=== PATIENT | male | born 1995 | race Caucasian/White ===

== ENCOUNTER 2020-08-10 11:16 | Emergency (ER) | payer OTHER ==
--- NOTE | 2020-08-10 11:53 | ER Document Report ---
ED Medical Screen (RME) - General Chief Complaint: Blood Pressure Problem Stated Complaint: BLOOD PRESSURE ISSUE Time Seen by Provider: 08/10/20 11:46 Mode of Arrival: Ambulatory Information source: Patient Notes: 24-year-old male presented to ED for complaint of elevated blood pressure at the urgent care yesterday then he called to try to get a primary care today and he had headache vision that was coming and going chests letter lightness in his chest. He states he is always had high blood pressure he does drink socially does not use drugs or smoke. Is alert oriented respirations regular nonlabored speaking in full sentences. We will get chest x-ray EKG and blood work to find out why he has a flutter in his chest and vision coming and going. Pain to the back of his head. I have greeted and performed a rapid initial assessment of this patient. A comprehensive ED assessment and evaluation of the patient, analysis of test results and completion of medical decision making process will be conducted by an additional ED providers. - Related Data Allergies/Adverse Reactions: No Known Allergies Allergy (Unverified 08/10/20 11:46) Physical Exam - Vital signs Vitals: Temp Pulse Resp BP Pulse Ox 98.9 F 76 22 H 162/86 H 98 08/10/20 11:41 08/10/20 11:41 08/10/20 11:41 08/10/20 11:41 08/10/20 11:41 Course - Vital Signs Vital signs: Temp Pulse Resp BP Pulse Ox 98.9 F 76 22 H 162/86 H 98 08/10/20 11:41 08/10/20 11:41 08/10/20 11:41 08/10/20 11:41 08/10/20 11:41
--- NOTE | 2020-08-10 12:49 | RADIOLOGY REPORT (SQ) ---
EXAM DESCRIPTION: CHEST 2 VIEWS IMAGES COMPLETED DATE/TIME: 08/10/2020 12:39 pm REASON FOR STUDY: Vision changes headache COMPARISON: None. EXAM PARAMETERS: NUMBER OF VIEWS: two views TECHNIQUE: Digital Frontal and Lateral radiographic views of the chest acquired. RADIATION DOSE: NA LIMITATIONS: none FINDINGS: LUNGS AND PLEURA: No opacities, masses or pneumothorax. No pleural effusion. MEDIASTINUM AND HILAR STRUCTURES: No masses or contour abnormalities. HEART AND VASCULAR STRUCTURES: Heart normal size. No evidence for failure. BONES: No acute findings. HARDWARE: None in the chest. OTHER: No other significant finding. IMPRESSION: NO ACUTE RADIOGRAPHIC FINDING IN THE CHEST. TECHNICAL DOCUMENTATION: JOB ID: [id number] 2010 [employer]- All Rights Reserved Reading location - IP/workstation name: [email or web address]
--- NOTE | 2020-08-10 12:57 | RADIOLOGY REPORT (SQ) ---
EXAM DESCRIPTION: CT HEAD WITHOUT IMAGES COMPLETED DATE/TIME: 08/10/2020 12:39 pm REASON FOR STUDY: Vision changes headache COMPARISON: None. TECHNIQUE: Axial images acquired through the brain without intravenous contrast. Images reviewed wi th bone, brain and subdural windows. Additional sagittal and coronal reconstructions were generated. Images stored on PACS. All CT scanners at this facility use dose modulation, iterative reconstruction, and/or weight based d osing when appropriate to reduce radiation dose to as low as reasonably achievable (ALARA). [facility]: Dose Right [facility]: CareDose [facility]: Dose Right [facility]: Teradose 4D [facility]: Smart FoodShootr RADIATION DOSE: CT Rad equipment meets quality standard of care and radiation dose reduction techniq ues were employed. CTDIvol: 53.2 mGy. DLP: 1070 mGy-cm. mGy. LIMITATIONS: None. FINDINGS: VENTRICLES: Normal size and contour. CEREBRUM: No masses. No hemorrhage. No midline shift. No evidence for acute infarction. Normal gra y/white matter differentiation. No areas of low density in the white matter. CEREBELLUM: No masses. No hemorrhage. No alteration of density. No evidence for acute infarction. EXTRAAXIAL SPACES: No fluid collections. No masses. ORBITS AND GLOBE: No intra- or extraconal masses. Normal contour of globe without masses. CALVARIUM: No fracture. PARANASAL SINUSES: No fluid or mucosal thickening. SOFT TISSUES: No mass or hematoma. OTHER: No other significant finding. IMPRESSION: NORMAL BRAIN CT WITHOUT CONTRAST. EVIDENCE OF ACUTE STROKE: NO. COMMENT: Quality ID # [id number]: Final reports with documentation of one or more dose reduction techniques (e.g., Automated exposure control, adjustment of the mA and/or kV according to patient size, use of iterative reconstruction technique) TECHNICAL DOCUMENTATION: JOB ID: [id number] 2010 [employer]- All Rights Reserved Reading location - IP/workstation name: [email or web address]
[2020-08-10 13:16] LABS: HEMATOCRIT 42.1 % (37.9-51.0); HEMOGLOBIN 14.6 g/dL (13.5-17.0); MEAN CORPUSCULAR HEMOGLOBIN 26.8 pg (27.0-33.4); MEAN CORPUSCULAR HGB CONC 34.8 g/dL (32.0-36.0); MEAN CORPUSCULAR VOLUME 77 fl (80-97); PLATELET COUNT 174 10^3/uL (150-450); RED BLOOD COUNT 5.47 10^6/uL (4.35-5.55); RED CELL DISTRIBUTION WIDTH 14.6 % (11.5-14.0); WHITE BLOOD COUNT 8.7 10^3/uL (4.0-10.5)
[2020-08-10 13:35] LABS: APPEARANCE,URINE CLEAR; BILIRUBIN,URINE NEGATIVE (NEGATIVE); COLOR,URINE YELLOW; GLUCOSE, URINE NEGATIVE (NEGATIVE); KETONES,URINE NEGATIVE (NEGATIVE); LEUKOCYTE ESTERASE,URINE NEGATIVE (NEGATIVE); NITRITE,URINE NEGATIVE (NEGATIVE); PROTEIN,URINE NEGATIVE (NEGATIVE); UROBILINOGEN,URINE NEGATIVE mg/dL (<2.0)
[2020-08-10 13:40] LABS: ABSOLUTE LYMPHOCYTES# (MANUAL) 2.5 10^3/uL (0.5-4.7); ABSOLUTE MONOCYTES # (MANUAL) 0.8 10^3/uL (0.1-1.4); BASOPHILS % (MANUAL) 0 % (0-2); EOSINOPHILS % (MANUAL) 2 % (0-6); LYMPHOCYTES % (MANUAL) 29 % (13-45); MONOCYTES % (MANUAL) 9 % (3-13); SEGMENTED NEUTROPHILS % (MAN) 60 % (42-78); TOTAL CELLS COUNTED 100
[2020-08-10 13:42] LABS: ALBUMIN 4.4 g/dL (3.5-5.0); ALKALINE PHOSPHATASE 89 U/L (38-126); ANION GAP 11 (5-19); ASPARTATE AMINO TRANSFERASE 22 U/L (17-59); BILIRUBIN,TOTAL 0.5 mg/dL (0.2-1.3); BLOOD UREA NITROGEN 18 mg/dL (7-20); CALCIUM 9.4 mg/dL (8.4-10.2); CARBON DIOXIDE 25 mmol/L (22-30); CHLORIDE 104 mmol/L (98-107); GLUCOSE 93 mg/dL (75-110); HYPOCHROMASIA SLIGHT; POLYCHROMASIA SLIGHT; POTASSIUM 4.1 mmol/L (3.6-5.0); TOTAL PROTEIN 7.4 g/dL (6.3-8.2)
[2020-08-10 13:46] LABS: PLATELET COMMENT ADEQUATE
[2020-08-10 13:57] LABS: URINE AMPHETAMINES SCREEN NEGATIVE; URINE BARBITURATES SCREEN NEGATIVE; URINE BENZODIAZEPINES SCREEN NEGATIVE; URINE COCAINE SCREEN NEGATIVE; URINE MARIJUANA (THC) SCREEN NEGATIVE; URINE METHADONE SCREEN NEGATIVE; URINE PHENCYCLIDINE SCREEN NEGATIVE
--- NOTE | 2020-08-10 16:16 | ER Document Report ---
ED Blood Pressure Problem - General Chief Complaint: High Blood Pressure Stated Complaint: BLOOD PRESSURE ISSUE Time Seen by Provider: 08/10/20 11:46 Primary Care Provider: JOSE VALERA MD [COMMUNITY BASED STAFF] - Follow up as needed Mode of Arrival: Ambulatory Information source: Patient Notes: Patient is a 24-year-old male comes emergency room complaining of having a headache and elevated blood pressure. Patient states that his story started years ago and has had a history of high blood pressure but is never done anything about it. 2 weeks ago patient hurt his hand and went to a walk-in clinic where they found that his blood pressure was high at about 180/90. They told him there could be because of pain and discomfort and to follow-up with his primary care provider. Patient states that the 2 weeks went by his hand and get a lot better and he went to another walk-in urgent care yesterday and again his blood pressure was now 190/90. They told him that he needed follow-up with his primary care provider for blood pressure control. Patient currently does not have a primary care provider. However he has set up an appointment with a new physician near his house for next week. The urgent care clinic told him that he needed to go to the emergency room because he got also had some mild chest discomfort with a headache. He also states that his eye was fasciculating. Denies any blurry vision. Denies any nausea vomiting or sweating. Patient crystal es any radiation of pain or discomfort states it only lasted for a fleeting second. Family history is pertinent for grandfather having a history of heart disease in his 70s and his dad have a history of hypertension. Patient does not smoke drink or do drugs. Patient is a [id number] dad who is retired from the . He states when he was in the [employer] his blood pressure was very low and since he has been out of the [employer] he has elevated blood pressures. He also states that in the [employer] he weighed 165 pounds and he currently weighs approximately 225 pounds. TRAVEL OUTSIDE OF THE [place] IN LAST 30 DAYS: No - HPI Patient complains to provider of: High blood pressure Onset: Other - Chronic Onset/Duration: Gradual Quality of pain: Achy, Throbbing Severity: Moderate Pain Level: 3 Problem is: Chronic problem Pt currently taking medication for problem: No Associated symptoms: Headache. denies: Nausea, Speech changes, Trouble breathing, Visual changes, Vomiting, Weakness Similar symptoms previously: Yes Recently seen / treated by doctor: Yes - Related Data Allergies/Adverse Reactions: No Known Allergies Allergy (Unverified 08/10/20 11:46) Past Medical History - Social History Smoking Status: Never Smoker Cigarette use (# per day): No Chew tobacco use (# tins/day): No Smoking Education Provided: No Frequency of alcohol use: None Drug Abuse: None Lives with: Family Family History: Reviewed & Not Pertinent, CAD Patient has suicidal ideation: No Patient has homicidal ideation: No Review of Systems - Review of Systems Constitutional: No symptoms reported EENT: No symptoms reported Cardiovascular: See HPI, Chest pain Respiratory: No symptoms reported Gastrointestinal: No symptoms reported Genitourinary: No symptoms reported Male Genitourinary: No symptoms reported Musculoskeletal: No symptoms reported Skin: No symptoms reported Hematologic/Lymphatic: No symptoms reported Neurological/Psychological: Headaches Physical Exam - Vital signs Vitals: Temp Pulse Resp BP Pulse Ox 98.9 F 76 22 H 162/86 H 98 08/10/20 11:41 08/10/20 11:41 08/10/20 11:41 08/10/20 11:41 08/10/20 11:41 Interpretation: Hypertensive - Notes Notes: PHYSICAL EXAMINATION: GENERAL: Well-appearing, well-nourished and in no acute distress. HEAD: Atraumatic, normocephalic. EYES: Pupils equal round and reactive to light, extraocular movements intact, sclera anicteric, conjunctiva are normal. ENT: Nares patent, oropharynx clear without exudates. Moist mucous membranes. NECK: Normal range of motion, supple without lymphadenopathy LUNGS: Breath sounds clear to auscultation bilaterally and equal. No wheezes rales or rhonchi. HEART: Regular rate and rhythm without murmurs ABDOMEN: Soft, nontender, nondistended abdomen. No guarding, no rebound. No masses appreciated. Musculoskeletal: Normal range of motion, no pitting or edema. No cyanosis. NEUROLOGICAL: Normal speech, normal gait. Normal sensory, motor exams PSYCH: Normal mood, normal affect. SKIN: Warm, Dry, normal turgor, no rashes or lesions noted. Course - Re-evaluation Re-evalutation: 08/10/20 16:15 Patient's work-up was negative for any acute findings. CT of the head was negative as well. Chest was negative, blood work was all good. Patient's blood pressure on arrival was 167/89 I believe and recheck is coming up now. Patient had not been ordered an EKG but EKG done on 08/10/2020 at 1548 shows to be a normal sinus rhythm no ectopy noted no ST segment changes. 08/10/20 16:17 Given patient has an appointment next week but still having a headache we will start him on some lisinopril 20 mg daily. He has been instructed return to ER should he have any increasing chest pain or shortness of breath or worsening headaches. - Vital Signs Vital signs: Temp Pulse Resp BP Pulse Ox 98.3 F 74 17 131/78 H 99 08/10/20 16:25 08/10/20 16:25 08/10/20 16:25 08/10/20 16:25 08/10/20 16:25 - Laboratory Result Diagrams: 08/10/20 12:47 08/10/20 12:47 Laboratory results interpreted by me: 08/10/20 12:47 MCV 77 L MCH 26.8 L RDW 14.6 H - EKG Interpretation by Me EKG shows normal: Sinus rhythm, Tarpley - Normal access, Intervals - Appear normal, QRS Complexes - Normal, ST-T Waves - Normal Rate: Normal - 61 bpm Rhythm: NSR Tarpley/QRS: No: RBBB, LBBB, IVCD, LAHB/LAFB, LPHB/LPFB Voltage: No: Increased voltage Additional EKG results interpreted by me: 08/10/20 16:17 Apparently patient has a textbook normal EKG. Discharge - Discharge Clinical Impression: Hypertensive headache Hypertension Qualifiers: Hypertension type: unspecified Qualified Code(s): I10 - Essential (primary) hypertension Condition: Stable Disposition: HOME, SELF-CARE Instructions: Angiotensin Converting Enzyme Inhibitor Medication ([facility]), High Blood Pressure, Requiring Treatment ([facility]) Additional Instructions: As we discussed I usually do not start patients on blood pressure medications out of ER but since you have close follow-up this coming week I am going put you on some lisinopril since her renal functions look good. And take it only once a day. Should you have increasing headaches worsening vision or chest pain/shortness of breath return to ER for reevaluation. Prescriptions: Lisinopril 20 mg PO DAILY #30 tablet Forms: Elevated Blood Pressure Referrals: JOSE VALERA MD [COMMUNITY BASED STAFF] - Follow up as needed
[2020-08-10 16:26] VITALS: BP 131/78
--- NOTE | 2020-08-10 18:06 | EKG REPORT ---
SEVERITY:- NORMAL ECG - SINUS RHYTHM : Confirmed by: Arcenio Malik 10-Aug-2020 18:05:43
--- OUTSIDE RECORDS SUMMARY | 2020-08-12 14:27 | XMS REPORT ---
:1995 Author Organization [facility] Address [facility] [place] [address] [place] [id number] Care Team Providers Name Role Phone Unavailable Unavailable Unavailable Allergies, Adverse Reactions, Alerts This patient has no known allergies or adverse reactions. Medications This patient has no known medications. Problems This patient has no known problems. Procedures This patient has no known procedures. Results This patient has no known results. Social History This patient has no known social history. Vital Signs This patient has no known vital signs.
== END 2020-08-10 16:25 | disposition home or self-care (01) ==
LOC: ER 11:16
DX: I10 Essential (primary) hypertension (principal); R51.9 Headache, unspecified; R07.9 Chest pain, unspecified; R25.3 Fasciculation; Z82.49 Family history of ischemic heart disease and other diseases of the circulatory system
CPT/HCPCS: 36415; 70450; 71046; 80053; 80307; 81001; 84484; 85025; 93005; 93010; 99285